=== PATIENT | male | born 1950 | race African-American/Black ===

== ENCOUNTER 2017-03-04 11:32 | Day surgery (SDC) | payer MEDICARE, MEDICAID ==
[~2017-03-04] VITALS: Ht 185.4 cm; Wt 102.5 kg
[~2017-03-04 11:32] MED LIST: ASPIRIN LOW DOS81 M2 PO; CIPRO500 MG OR; COUMADIN5 MG PO; COUMADIN7.5 MG PO; CRESTOR20 MG PO; FLAGYL500 MG OR; FLEXERIL5 MG PO; FUROSEMIDE20 MG PO; HYDROCHLOROT12.5 MG OR; HYDROCHLOROT12.5 MG PO; HYDROCHLOROTH12.5 MG OR; LISINOP/HCTZ1 TA1 PO; LISINOPRIL10 MG OR; LISINOPRIL20 MG PO; LORTAB 5 OR; MILK OF MAG30 ML/UDC PO; NORVASC PO; PERCOCET 5/325M1 TAB PO; PRAVASTATIN40 MG PO; RANITIDINE150 M1 PO; SIMVASTATIN20 MG OR; TRAMADOL HCL50 MG PO; ULTRAM50 MG OR; WARFARIN5 MG PO
[2017-03-04 13:56] VITALS: BP 120/72
== END 2017-03-04 14:10 | disposition home or self-care (01) ==
LOC: ENDO 11:32 → ORM 18:15
PROVIDERS: ATTEND Internal Medicine Gastroenterology
PROC: 0DJD8ZZ Inspection of Lower Intestinal Tract, Via Natural or Artificial Opening Endoscopic (ICD-10-PCS; principal; 2017-03-04)
DX: Z12.11 Encounter for screening for malignant neoplasm of colon (principal); K64.4 Residual hemorrhoidal skin tags; K64.8 Other hemorrhoids; K21.9 Gastro-esophageal reflux disease without esophagitis; E78.00 Pure hypercholesterolemia, unspecified; I10 Essential (primary) hypertension; Z86.010 Personal history of colon polyps; Z86.718 Personal history of other venous thrombosis and embolism

== ENCOUNTER 2018-03-13 10:23 | Emergency (ER) | payer MEDICARE, MEDICAID ==
[~2018-03-13] VITALS: Ht 185.4 cm; Wt 102.3 kg
[2018-03-13] MEDS ORDERED: ATORVASTATIN CA10 MG PO (10:45)
[2018-03-13 12:09] VITALS: BP 165/70
[2018-03-13] MEDS ORDERED: IBUPROFEN600 MG PO (12:12)
[2018-03-13] MEDS ORDERED: MEDDOSEPAK PO (12:12)
== END 2018-03-13 12:16 | disposition home or self-care (01) ==
LOC: ED 10:23
DX: M54.32 Sciatica, left side (principal); I10 Essential (primary) hypertension; Z86.718 Personal history of other venous thrombosis and embolism; M79.605 Pain in left leg; R60.0 Localized edema

== ENCOUNTER 2018-04-28 12:02 | Day surgery (SDC) | payer MEDICARE, MEDICAID ==
[~2018-04-28] VITALS: Ht 185.4 cm; Wt 103.9 kg
[~2018-04-28 12:02] MED LIST changes: +ADULT ASPIRIN E81 MG PO; +ATORVASTATIN CA10 MG PO; +IBUPROFEN600 MG PO; +MEDDOSEPAK PO; +METO50TA52 PO
[2018-04-28 16:20] VITALS: BP 125/81
== END 2018-04-28 16:40 | disposition home or self-care (01) ==
LOC: ENDO 12:02
PROVIDERS: ATTEND Internal Medicine Gastroenterology
PROC: 0DBN8ZX Excision of Sigmoid Colon, Via Natural or Artificial Opening Endoscopic, Diagnostic (ICD-10-PCS; principal; 2018-04-28)
DX: Z12.11 Encounter for screening for malignant neoplasm of colon (principal); K63.5 Polyp of colon; K64.4 Residual hemorrhoidal skin tags; K64.8 Other hemorrhoids; K21.9 Gastro-esophageal reflux disease without esophagitis; I10 Essential (primary) hypertension; E78.00 Pure hypercholesterolemia, unspecified; Z86.718 Personal history of other venous thrombosis and embolism; Z95.828 Presence of other vascular implants and grafts; Z86.010 Personal history of colon polyps

== ENCOUNTER 2018-06-04 12:39 | Emergency (ER) | payer MEDICARE, MEDICAID ==
[~2018-06-04] VITALS: Ht 185.4 cm; Wt 90.0 kg
[2018-06-04 13:33] LABS: HEMATOCRIT 25.8 % (39.0-50.0); HEMOGLOBIN 8.2 g/dl (14.0-18.0); IMMATURE GRANULOCYTES 0.5 % (0.0-5.0); MEAN CELL VOLUME 77.7 fL CALC (80.0-100.0); MEAN CORPUSCULAR HGB 24.7 pG CALC (26.0-32.0); MEAN CORPUSCULAR HGB CONC 31.8 g/L CALC (32.0-36.0); NEUT# 1.66 thou/uL (1.82-7.42); RED BLOOD COUNT 3.32 mill/uL (4.70-6.10); RED CELL DISTRI WIDTH 20.8 % (11.5-15.5)
[2018-06-04] MEDS ORDERED: ADLT ASA LOW81 MG PO (13:49)
[2018-06-04 14:31] LABS: ALKALINE PHOSPHATASE 82 u/l (38-126); ANION GAP 17 (6-22 (CALC)); BILIRUBIN, TOTAL 0.3 mg/dL (0.0-1.4); BUN 20 mg/dL (8-23); BUN/CREATININE RATIO 18 (12-20 (CALC)); CARBON DIOXIDE 26 mmol/l (22-30); CHLORIDE 107 mmol/l (95-108); CREATININE 1.1 mg/dL (0.7-1.3); GFR > 60 ML/MIN (>=60 (CALC)); GFR FOR AFR.AMER. > 60 ML/MIN (>=60 (CALC)); MAGNESIUM 2.1 mg/dL (1.6-2.3); POTASSIUM 4.5 mmol/l (3.5-5.1); SGOT/AST 54 u/l (19-48); SODIUM 145 mmol/l (137-146); TOTAL PROTEIN 7.5 g/dL (6.3-8.2)
[2018-06-04 14:57] VITALS: BP 133/80
[2018-06-04] MEDS ORDERED: TRAMADOL HYDROC50 MG PO (15:00)
== END 2018-06-04 15:13 | disposition home or self-care (01) ==
LOC: ED 12:39
DX: M79.605 Pain in left leg (principal); M79.604 Pain in right leg; Z87.898 Personal history of other specified conditions; Z86.718 Personal history of other venous thrombosis and embolism

== ENCOUNTER 2018-06-05 08:56 | Emergency (ER) | payer MEDICARE, MEDICAID ==
[~2018-06-05] VITALS: Ht 185.4 cm; Wt 104.5 kg
[~2018-06-05 08:56] MED LIST changes: +ADLT ASA LOW81 MG PO; +TRAMADOL HYDROC50 MG PO
[2018-06-05 11:12] VITALS: BP 137/81
== END 2018-06-05 11:16 | disposition home or self-care (01) ==
LOC: ED 08:56
DX: S39.012A Strain of muscle, fascia and tendon of lower back, initial encounter (principal); I10 Essential (primary) hypertension; M19.90 Unspecified osteoarthritis, unspecified site; X58.XXXA Exposure to other specified factors, initial encounter; Z86.718 Personal history of other venous thrombosis and embolism

== ENCOUNTER 2018-06-07 21:02 | Emergency (ER) | payer MEDICARE, MEDICAID ==
[~2018-06-07] VITALS: Ht 185.4 cm; Wt 104.1 kg
[2018-06-07 21:47] LABS: HEMATOCRIT 25.9 % (39.0-50.0); HEMOGLOBIN 8.1 g/dl (14.0-18.0); IMMATURE GRANULOCYTES 0.7 % (0.0-5.0); MEAN CELL VOLUME 78.2 fL CALC (80.0-100.0); MEAN CORPUSCULAR HGB 24.5 pG CALC (26.0-32.0); MEAN CORPUSCULAR HGB CONC 31.3 g/L CALC (32.0-36.0); NEUT# 3.06 thou/uL (1.82-7.42); RED BLOOD COUNT 3.31 mill/uL (4.70-6.10); RED CELL DISTRI WIDTH 21.7 % (11.5-15.5)
[2018-06-07 22:05] LABS: ALBUMIN 4.3 g/dL (3.2-5.0); BILIRUBIN, TOTAL 0.3 mg/dL (0.0-1.4); CREATININE 1.9 mg/dL (0.7-1.3); POTASSIUM 4.9 mmol/l (3.5-5.1); TOTAL PROTEIN 7.7 g/dL (6.3-8.2)
[2018-06-07] MEDS ORDERED: FLEXERIL PO (23:45)
[2018-06-07] MEDS ORDERED: LORTAB 1010 MG PO (23:45)
[2018-06-08 00:10] VITALS: BP 114/66
== END 2018-06-08 00:40 | disposition home or self-care (01) ==
LOC: ED 21:02
PROVIDERS: Emergency Medicine
DX: S33.5XXA Sprain of ligaments of lumbar spine, initial encounter (principal); I10 Essential (primary) hypertension; M19.90 Unspecified osteoarthritis, unspecified site; Z86.718 Personal history of other venous thrombosis and embolism; X58.XXXA Exposure to other specified factors, initial encounter

== ENCOUNTER 2018-06-18 11:40 | Emergency (ER) | payer MEDICARE ==
[~2018-06-18] VITALS: Ht 185.4 cm; Wt 105.0 kg
[~2018-06-18 11:40] MED LIST changes: +FLEXERIL PO; +LORTAB 1010 MG PO
[2018-06-18 12:25] LABS: HEMATOCRIT 21.8 % (39.0-50.0); IMMATURE GRANULOCYTES 0.3 % (0.0-5.0); MEAN CELL VOLUME 77.6 fL CALC (80.0-100.0); MEAN CORPUSCULAR HGB 24.2 pG CALC (26.0-32.0); MEAN CORPUSCULAR HGB CONC 31.2 g/L CALC (32.0-36.0); NEUT# 3.43 thou/uL (1.82-7.42); RED BLOOD COUNT 2.81 mill/uL (4.70-6.10); RED CELL DISTRI WIDTH 21.4 % (11.5-15.5)
[2018-06-18 12:28] LABS: HEMOGLOBIN 6.8 g/dl (14.0-18.0)
[2018-06-18 12:32] LABS: ANION GAP 18 (6-22 (CALC)); BUN 19 mg/dL (8-23); BUN/CREATININE RATIO 16 (12-20 (CALC)); CARBON DIOXIDE 22 mmol/l (22-30); CHLORIDE 103 mmol/l (95-108); CREATININE 1.1 mg/dL (0.7-1.3); GFR > 60 ML/MIN (>=60 (CALC)); GFR FOR AFR.AMER. > 60 ML/MIN (>=60 (CALC)); POTASSIUM 4.4 mmol/l (3.5-5.1); SODIUM 138 mmol/l (137-146)
[2018-06-18 14:09] VITALS: BP 128/64
[2018-06-18 14:33] VITALS: BP 118/62
[2018-06-18 15:15] VITALS: BP 118/62
== END 2018-06-18 15:16 | disposition short-term general hospital (02) ==
LOC: ED 11:40
PROVIDERS: Family Medicine
PROC: 30233N1 Transfusion of Nonautologous Red Blood Cells into Peripheral Vein, Percutaneous Approach (ICD-10-PCS; principal; 2018-06-18)
DX: I82.402 Acute embolism and thrombosis of unspecified deep veins of left lower extremity (principal); D64.9 Anemia, unspecified; I10 Essential (primary) hypertension; M19.90 Unspecified osteoarthritis, unspecified site; Z86.718 Personal history of other venous thrombosis and embolism; Z95.828 Presence of other vascular implants and grafts; R06.02 Shortness of breath
CPT/HCPCS: P9016

== ENCOUNTER 2018-09-04 07:02 | Inpatient (IN) | payer MEDICARE ==
[~2018-09-04] VITALS: Ht 188 cm; Wt 93.0 kg
--- NOTE | 2018-09-04 07:02 | NUR ---
PT TO ROOM 10 VIA WC ABLE TO STAND AND TRANSFER SELF TO STRETCHER WITHOUT ASSIST.
--- NOTE | 2018-09-04 07:25 | NUR ---
PT RELATES PAIN IS 6/10 BURNING TO EPIGASTRIC REGION. PO ASA 324MG AND NITRO PASTE 1GM TO LT UPPER ARM. NO DYSPNEA OR SOB. INITIATED IV
[2018-09-04 07:33] LABS: HEMATOCRIT 30.9 % (39.0-50.0); HEMOGLOBIN 10.1 g/dl (14.0-18.0); IMMATURE GRANULOCYTES 0.2 % (0.0-5.0); MEAN CELL VOLUME 78.6 fL CALC (80.0-100.0); MEAN CORPUSCULAR HGB 25.7 pG CALC (26.0-32.0); MEAN CORPUSCULAR HGB CONC 32.7 g/L CALC (32.0-36.0); NEUT# 2.67 thou/uL (1.82-7.42); RED BLOOD COUNT 3.93 mill/uL (4.70-6.10); RED CELL DISTRI WIDTH 19.5 % (11.5-15.5)
[2018-09-04 07:50] LABS: ALBUMIN 4.8 g/dL (3.2-5.0); ALKALINE PHOSPHATASE 135 u/l (38-126); ANION GAP 21 (6-22 (CALC)); BILIRUBIN, TOTAL 0.6 mg/dL (0.0-1.4); BUN 37 mg/dL (8-23); BUN/CREATININE RATIO 28 (12-20 (CALC)); CARBON DIOXIDE 24 mmol/l (22-30); CHLORIDE 103 mmol/l (95-108); CREATININE 1.3 mg/dL (0.7-1.3); GFR 55 ML/MIN (>=60 (CALC)); GFR FOR AFR.AMER. > 60 ML/MIN (>=60 (CALC)); LIPASE 159 u/l (23-300); POTASSIUM 4.7 mmol/l (3.5-5.1); SGOT/AST 81 u/l (19-48); SODIUM 143 mmol/l (137-146)
--- NOTE | 2018-09-04 08:00 | NUR ---
URINAL EMPTIED OF 300CC CLEAR LIGHT YELLOW URINE
--- NOTE | 2018-09-04 08:36 | NUR ---
PT STATES CP IS 0/10. INITATED IV FLUIDS AND BS RECHECK READS MD JESSICA AWARE, NEW ORDERS RECEIVED.
--- NOTE | 2018-09-04 09:04 | NUR ---
URINAL EMPTIED OF 300CC CLEAR LIGHT YELLOW URINE. ADMINISTERED NOVOLIN R 5U IV ORDERED FOR BS
[2018-09-04] MEDS ORDERED: ELIQUIS5 MG PO (09:24)
[2018-09-04 10:00] LABS: URINE BILIRUBIN - DIPSTICK NEGATIVE (NEGATIVE); URINE BLOOD DIPSTICK TRACE-INTACT (NEGATIVE); URINE COLOR YELLOW; URINE GLUCOSE - DIPSTICK >=1000 mg/dL (NEGATIVE); URINE KETONE TRACE mg/dL (NEGATIVE); URINE LEUK ESTERASE NEGATIVE (Negative); URINE NITRITE - DIPSTICK NEGATIVE (Negative); URINE PH 5.5 (4.5-8.0); URINE PROTEIN - DIPSTICK NEGATIVE (NEG-TRACE); URINE SPECIFIC GRAVITY <=1.005; URINE UROBILINOGEN - DIPSTICK 0.2 E.U./dL (0.2)
[2018-09-04 10:03] LABS: URINE CLARITY SL CLOUDY
--- NOTE | 2018-09-04 10:03 | NUR ---
PT RECHECK BS READS HIGH. AWARE AND NEW ORDERS RECEIVED
--- NOTE | 2018-09-04 10:14 | NUR ---
INITIATED IVF BOLUS AND NOVOLIN R 5U IV ORDERED. PT C/O EXCESSIVE THIRST. URINAL EMPTIED OF 300CC CLEAR STRAW COLORED URINE.
--- NOTE | 2018-09-04 11:21 | NUR ---
RECHECK OF BS READS CRITICAL HIGH. EDP INFORMED, REQUESTED TO NOTIFY ADMITING PHYSICIAN.PT ALERT AND ORIENTED IN NO AUTE DISTRESS.
--- NOTE | 2018-09-04 11:24 | NUR ---
DR KURTZ REQUESTED REPEAT CBC AND SEND TO ICU AND "WE WILL TAKE OF IT OVER THERE".
--- NOTE | 2018-09-04 11:54 | NUR ---
LABA T BEDSIDE FOR CMP DRAW.
--- NOTE | 2018-09-04 12:00 | NUR ---
CALLED REPORT TO LAURO ALVAREZ RN ICU
--- NOTE | 2018-09-04 12:10 | NUR ---
PT TRANSPORTED TO ICU VIA STRETCHER ON CONTINUOUS PEER EDUCATOR. PT ALERT AND ORIENTED.
[2018-09-04 12:15] VITALS: BP 157/83
--- NOTE | 2018-09-04 12:15 | NUR ---
PT ARRIVED TO ICU 7 FROM ER BY STRETCHER. PT AMBULATED WITH STEADY GAIT FROM STRETCHER TO BED. C/O OCCASIONAL DIZZINESS WHEN HE FIRST STANDS UP BUT DENIES S/S AT THIS TIME. V/S TAKEN. ASSESSMENT COMPLETED. PT EDUCATED ON CALLBELL & FALL RISK INSTRUCTIONS. PT GIVEN TRAY FROM [place] FOR LUNCH.
[2018-09-04 12:26] LABS: ALBUMIN 4.2 g/dL (3.2-5.0); ALKALINE PHOSPHATASE 123 u/l (38-126); ANION GAP 16 (6-22 (CALC)); BILIRUBIN, TOTAL 0.3 mg/dL (0.0-1.4); BUN 31 mg/dL (8-23); BUN/CREATININE RATIO 28 (12-20 (CALC)); CARBON DIOXIDE 25 mmol/l (22-30); CHLORIDE 110 mmol/l (95-108); CREATININE 1.1 mg/dL (0.7-1.3); GFR > 60 ML/MIN (>=60 (CALC)); GFR FOR AFR.AMER. > 60 ML/MIN (>=60 (CALC)); SGOT/AST 70 u/l (19-48); SODIUM 147 mmol/l (137-146); TOTAL PROTEIN 7.8 g/dL (6.3-8.2)
--- NOTE | 2018-09-04 12:30 | NUR ---
PT C/O INCREASED THRIST & URINATION ALONG WITH WEAKNESS SINCE TUESDAY. INITIAL C/O FOR ER WAS CP BUT PT DENIES CP AT THIS TIME. PT DENIES N/V/D. ABD SOFT/NONTENDER, ACTIVE BS. BREATHING EVEN/UNLABORED, CLEAR LUNG SOUNDS. PULSES STRONG x4. NO EDEMA. CARY. EYES PERRLA @4. SKIN WARM/DRY. DENIES WOUNDS. PT HAS UPPER/LOWER DENTURES, NO HEARING AIDS. PT DOES NOT USE A CANE OR WALKER. PT LIVES ALONE AND FEELS SAFE, DRIVES SELF. PT ORIGINALLY FROM [place]. RECENTLY HAD A BLOOD CLOT IN HIS LEG, DENIES HX OF DIABETES NOT FAMILY HX OF DIABETES. PT EDUCATED ON NEW DIET, INCLUDING ALL THE CARBS ON LUNCH TRAY.
--- NOTE | 2018-09-04 13:50 | NUR ---
PT RESTING IN BED. 200CC CLEAR YELLOW URINE DISCARDED FROM URINAL. CALLBELL W/IN REACH.
--- NOTE | 2018-09-04 15:09 | NUR ---
PT RESTING IN BED, WATCHING TV. REQUESTED ANOTHER BOTTLE OF WATER. DENIES PAIN. DENIES N/V/D.
--- NOTE | 2018-09-04 16:07 | NUR ---
DR KURTZ @BEDSIDE WITH PT.
--- NOTE | 2018-09-04 17:07 | NUR ---
EDUCATED PT ON ACCUCHECK PROCESS, WALKED PT THROUGH EACH STEP. READING: JESSICA
--- NOTE | 2018-09-04 17:20 | NUR ---
DR KURTZ ON UNIT, NOTIFIED OF PTS "HI" ACCUCHECK READING. RBVO FROM DR KURTZ TO GIVE 20units NOVOLOG INSTEAD OF 14 AND GIVE JOY CABRERA DIRECTED.
--- NOTE | 2018-09-04 17:32 | NUR ---
PROVIDED EDUCATION ON DIABETES FOR PT, INCLUDING NAMES OF NEW MEDICATIONS AND WETHER THEY ARE SHORT OR LONG ACTING AND WHEN HE NEEDS THEM. PRINTED OUT A COPY OF SLIDING SCALE FOR PT. PT SHOWN HOW TO INJECT MEDICATIONS BUT STATES HE WANTS THE PILL FORM IF HE HAS TO DO THAT TO HIMSELF BC HE DOESNT THINK HE CAN DO IT.
[2018-09-04 19:10] VITALS: BP 141/78
--- NOTE | 2018-09-04 19:15 | NUR ---
BEDSIDE REPORT RECEIVED FROM MURIEL ARELLANO. PT RESTING IN BED SEMI FOWLERS; ALERT AND ORIENTED. DENIES PAIN. RESPOIRATIONS EVEN AND UNLABORED ON ROOM AIR. PLAN OF CARE DISCUSSED. PT ENCOURAGED TO VERBALIZE CONCERNS. STATES UNDERSTANDING AND REQUESTS ICE WATER. SAFETY MEASURES IN PLACE. CALL LIGHT WITHIN REACH.
--- NOTE | 2018-09-04 20:27 | NUR ---
ACCU CHECK 404; DR. KURTZ NOTIFED. ORDERS TO GIVE SCHEDULED NOVOLOG AND LEVEMIR; NOTHING ADDITIONAL AT THIS TIME.
[2018-09-05] VITALS (8 sets, daily range): BP systolic 97–137; BP diastolic 69–82
--- NOTE | 2018-09-05 00:02 | NUR ---
PT ASLEEP AT THIS TIME WITH NO SIGNS OF DISTRESS. RESPIRATIONS EVEN AND UNLABORED ON ROOM AIR. IV FLUIDS INFUSING WITHOUT DIFFICULTY; IV SITE APPEARS HEALTHY. INDEPENDENT IN ROOM. NO SIGNS OF HYPOGLYCEMIA. NO REQUESTS OR CONCERNS AT THIS TIME. SAFETY MEASURES IN PLACE. CALL LIGHT WITHIN REACH.
--- NOTE | 2018-09-05 04:03 | NUR ---
NO ACUTE CHANGES IN CONDITION THROUGHOUT THE NIGHT. VOIDING CLEAR YELLOW URINE IN ADEQUATE AMOUNTS. CALL LIGHT WITHIN REACH.
[2018-09-05 06:19] LABS: HEMATOCRIT 27.3 % (39.0-50.0); HEMOGLOBIN 8.9 g/dl (14.0-18.0); IMMATURE GRANULOCYTES 0.4 % (0.0-5.0); MEAN CELL VOLUME 78.7 fL CALC (80.0-100.0); MEAN CORPUSCULAR HGB 25.6 pG CALC (26.0-32.0); MEAN CORPUSCULAR HGB CONC 32.6 g/L CALC (32.0-36.0); NEUT# 2.92 thou/uL (1.82-7.42); RED BLOOD COUNT 3.47 mill/uL (4.70-6.10)
[2018-09-05 06:36] LABS: ALKALINE PHOSPHATASE 106 u/l (38-126); AMYLASE 47 u/l (30-110); ANION GAP 13 (6-22 (CALC)); BILIRUBIN, TOTAL 0.4 mg/dL (0.0-1.4); BUN 22 mg/dL (8-23); BUN/CREATININE RATIO 24 (12-20 (CALC)); CARBON DIOXIDE 25 mmol/l (22-30); CHLORIDE 110 mmol/l (95-108); CREATININE 0.9 mg/dL (0.7-1.3); GFR > 60 ML/MIN (>=60 (CALC)); GFR FOR AFR.AMER. > 60 ML/MIN (>=60 (CALC)); LIPASE 85 u/l (23-300); MAGNESIUM 2.3 mg/dL (1.6-2.3); SGOT/AST 65 u/l (19-48); SODIUM 144 mmol/l (137-146); TOTAL PROTEIN 7.5 g/dL (6.3-8.2)
[2018-09-05 06:38] LABS: POTASSIUM 3.9 mmol/l (3.5-5.1)
--- NOTE | 2018-09-05 06:55 | NUR ---
RECVD REPORT FROM MURIEL RODRIGUEZ AT START OF SHIFT.
--- NOTE | 2018-09-05 07:39 | NUR ---
PT SITTING UP IN BED, EATING BREAKFAST. CURTAINS OPENED. WILL CONTINUE TO ECUCATE PT ON DIABETES.
--- NOTE | 2018-09-05 09:15 | NUR ---
PT TO [facility] FOR A SHOWER.
--- NOTE | 2018-09-05 09:45 | NUR ---
PT RETURNED FROM SHOWER. LINENS CHANGED. NO NEW NEEDS/CONCERNS AT THIS TIME. CALLBELL W/IN REACH. DIETARY WILL COME BACK LATER WITH DIABETES INFORMATION.
--- NOTE | 2018-09-05 10:09 | NUR ---
DR KURTZ @BEDSIDE WITH PT, DISCUSSING ALTERNATIVE DM MEDICATIONS D/T PT STATING HE WONT BE ABLE TO GIVE HIMSELF SHOTS WHEN HE GOES HOME.
--- NOTE | 2018-09-05 10:20 | NUR ---
DISCUSSED LABS WITH DR KURTZ, HE STATES PT WILL FOLLOW UP OUTPT.
--- NOTE | 2018-09-05 10:56 | NUR ---
CALLED PHARMACY TO DISCUSS NEW DM MEDICATION START DATE/TIMES. THEY WILL CALL DR KURTZ TO CLARIFY ORDERS.
--- NOTE | 2018-09-05 11:46 | NUR ---
VISITOR @BEDSIDE. PT SITTING UP IN BED, EATING LUNCH. MORE EDUCATION PROVIDED RE: DM AND EDUCATION PRINTED OUT FROM DC INSTRUCTIONS FOR PT TO READ. PT DENIES S/S OF HYPER/HYPOGLYCEMIA.
--- NOTE | 2018-09-05 12:11 | NUR ---
LAB @BEDSIDE FOR BLOOD DRAW.
--- NOTE | 2018-09-05 13:11 | NUR ---
DIETARY @BEDSIDE WITH PT/VISITOR FOR DM DIET EDUCATION.
--- NOTE | 2018-09-05 14:00 | NUR ---
PHARMACY AT BEDSIDE
--- NOTE | 2018-09-05 14:16 | NUR ---
VISITOR LEFT SO PT CAN SLEEP. CALLBELL W/IN REACH.
--- NOTE | 2018-09-05 14:34 | NUR ---
Spoke with patient about his concerns for his recent diagnosis of diabetes. Counseled patient on lifestyle modifications, specifically exercising and dieting. The patient admitted he does drink a lot of juice in which we explained the high amounts of sugar that juice has. Encouraged patient to drink more water and go for walks more.
--- NOTE | 2018-09-05 15:50 | NUR ---
PT RESTING IN BED. NO S/S OF DISTRESS AT THIS TIME.
--- NOTE | 2018-09-05 18:17 | NUR ---
PT MEDICATED PRIOR TO TUBE FEEDING. MURIEL WEEMS, ASSISTING WITH TUBE FEEDING 1 CAN OF GYLERCNIA BY PEG TUBE.
--- NOTE | 2018-09-05 19:00 | NUR ---
BEDSIDE REPORT RECEIVED FROM MURIEL ARELLANO. PT RESTING IN BED SEMI FOWLERS; ALERT AND ORIENTED. C/O OF SEVERE PAIN TO HIS RIGHT AXILLA AND UPPER ARM; ON ASSESSMENT PT HAS LARGE ABCESS TO THAT AREA WITH WHITE FOCAL POINT AND FIRMNESS THROUGHOUT AXILLA. WARM PACK APPLIED. RESPIRATIONS EVEN AND UNLABORED ON ROOM AIR. PLAN OF CARE REVIEWED. PT ENCOURAGED TO VERBALIZE CONCERNS. STATES UNDERSTANDING. SAFETY MEASURES IN PLACE. CALL LIGHT WITHIN REACH.
--- NOTE | 2018-09-05 19:58 | NUR ---
PT SPIKED A TEMPERATURE OF 102.0. DR. KURTZ NOTIFIED OF TEMP AND ABSCESS. NEW ORDERS FOR BLOOD CX X 2, VANCOMYCIN 1G, TYLENOL PRN FOR FEVERS, AND POSSIBLE I&D OF RIGHT AXILLA TOMORROW. LAB AT BEDSIDE AT THIS TIME.
--- NOTE | 2018-09-05 21:10 | NUR ---
VANCOMYCIN INFUSING AT THIS TIME. TEMPERATURE DOWN TO 101.0 AFTER TYLENOL; WILL CONTINUE TO MONITOR.
[2018-09-06] VITALS (7 sets, daily range): BP systolic 113–135; BP diastolic 63–82
--- NOTE | 2018-09-06 00:25 | NUR ---
PT ASLEEP AT THIS TIME WITH NO SIGNS OF DISTRESS. RESPIRATIONS EVEN AND UNLABORED ON ROOM AIR. IV FLUIDS INFUSING WITHOUT DIFFICULTY; IV SITE APPEARS HEALTHY. INDEPENDENT IN ROOM. TEMPERATURE DOWN TO 99.8. SAFETY MEASURES IN PLACE. CALL LIGHT WITHIN REACH.
--- NOTE | 2018-09-06 04:07 | NUR ---
PT RESTING IN BED WITH EYES CLOSED; AWAKENS TO VERBAL STIMULI. TEMPERATURE 99.8.
[2018-09-06 05:34] LABS: HEMATOCRIT 27.2 % (39.0-50.0); HEMOGLOBIN 8.6 g/dl (14.0-18.0); IMMATURE GRANULOCYTES 0.4 % (0.0-5.0); MEAN CELL VOLUME 78.8 fL CALC (80.0-100.0); MEAN CORPUSCULAR HGB 24.9 pG CALC (26.0-32.0); MEAN CORPUSCULAR HGB CONC 31.6 g/L CALC (32.0-36.0); NEUT# 3.41 thou/uL (1.82-7.42); RED BLOOD COUNT 3.45 mill/uL (4.70-6.10); RED CELL DISTRI WIDTH 19.9 % (11.5-15.5)
[2018-09-06 06:05] LABS: ALBUMIN 3.7 g/dL (3.2-5.0); ALKALINE PHOSPHATASE 97 u/l (38-126); ANION GAP 14 (6-22 (CALC)); BILIRUBIN, TOTAL 0.4 mg/dL (0.0-1.4); BUN 18 mg/dL (8-23); BUN/CREATININE RATIO 17 (12-20 (CALC)); CARBON DIOXIDE 24 mmol/l (22-30); CHLORIDE 107 mmol/l (95-108); CREATININE 1.1 mg/dL (0.7-1.3); GFR > 60 ML/MIN (>=60 (CALC)); GFR FOR AFR.AMER. > 60 ML/MIN (>=60 (CALC)); SGOT/AST 54 u/l (19-48); SODIUM 140 mmol/l (137-146); TOTAL PROTEIN 7.2 g/dL (6.3-8.2)
--- NOTE | 2018-09-06 07:19 | NUR ---
PT. SITTING UP IN BED WITH NO DISTRESS NOTED; RESP EVEN AND UNLABORED; ASSESSMENT COMPLETED; ABCESS NOTED TO RIGHT AUXILLARY; FIRM AND INTACT; PT. C/O SORENESS TO SITE AND HAS A TEMP OF 101; MEDICATED WITH ORDERED TYLENOL; WILL REASSESS; PT. DECLINES WANTING TO REMOVE BLANKET AT THIS TIME; UPDATED ON POC. EDUCATED ON HOW TO CHECK HIS BS AND BS CHECKED AT THIS TIME AND COVERAGE GIVEN AT THIS TIME PER ORDER; INSTRUCTED TO CALL FOR ANY NEEDS; CALL LIGHT IS IN REACH; WILL CONTINUE TO MONITOR.
--- NOTE | 2018-09-06 07:59 | NUR ---
S: BRENNON FRANKLIN is a 68 M who presents with Nonketotic hyperglycemic state. He has a history of NEW DM2,HTN,DVT,HYPERLIPEMIA,GERD,HYPERCALCEMIA,ANEMIA. All medications in patient's chart were reviewed. O: VS: BP 125/75, P 90, RR 18,T 101 W 93kg, HT 74IN, Scr= 1.1,CrCl= 77 ml/min A: Blood culture <is pending/show> which is sensitive to <>. Urine culture <is pending/show> which is sensitive to <>. P: Patient is on VANCO. Vancomycin ordered for pharmacy to dose. Start Vancomycin 1250MG IV Q12H. Vancomycin trough is drawn before the 4th dose on 09/07/17 AT 0730AM. Vancomycin goal trough is between <10-15 mcg/ml>. Pharmacy will follow and or advise on antibiotics use as needed. MARTIR NELSON-PHARMD
--- NOTE | 2018-09-06 08:30 | NUR ---
REASSESSED TEMP AND NOW IS 99.6; WILL CONTINUE TO MONITOR. CALL LIGHT IS IN REACH.
--- NOTE | 2018-09-06 11:00 | NUR ---
DR. KURTZ IN TO SEE PT.
--- NOTE | 2018-09-06 14:31 | NUR ---
pt. c/o right axillary pain 03/31; medicated with ordered tylenol; will reassess; po fluids offered; call light is in reach.
--- NOTE | 2018-09-06 15:40 | NUR ---
PT. STILL C/O PAIN TO RIGHT AXILLARY 12/29; NOTIFIED DR. ASKEW VIA TELEPHONE THAT PT. IS REQUESTING SOMETHING STRONGER THAN TYLENOL; PER MD HE WILL PLACE ORDERS IN CPOE; WILL AWAIT;
--- NOTE | 2018-09-06 18:20 | NUR ---
REASSESSED TEMP AND NOW IS 100.1; WILL CONTINUE TO MONITOR. ABCESS TO RIGHT AXILLARY IS NOTED WITH SLIGHT DRAINAGE CLEANSED WITH NS AND APPLIED ABD PAD; ENCOURAGED TO CALL FOR ANY NEEDS; CALL LIGHT IS IN REACH.
--- NOTE | 2018-09-06 19:15 | NUR ---
PT SITTING UP IN BED WATCHING TV. PT IS ALERT AND ORIENTED X3. SHIFT ASSESSMENT COMPLETED AT THIS TIME. PLAN OF CARE REVIEWED AT THIS TIME. CALL LIGHT IN REACH. WILL CONTINUE TO MONITOR.
--- NOTE | 2018-09-06 21:22 | NUR ---
PT APPEARS TO BE SLEEPING, DID NOT AWAKE TO MY ENTERING ROOM. IV FLUIDS ARE RUNNING ORDERS PROVIDE, PT HAS WASHCLOTH TO HIS HEAD, BUT NO S/O DISTRESS ARE NOTED. CALL LIGHT AT SIDE.
--- NOTE | 2018-09-07 00:05 | NUR ---
PT IS AWAKE, AIDE WAS JUST IN TO SEE PT. IV FLUIDS ARE RUNNING ORDERS PROVIDE/SITE APPEARS HEALTHY. NO S/O DISTRESS AND PT DENIES ANY NEEDS AT THIS TIME. CALL LIGHT AT SIDE AND PT ENCOURAGED TO CALL NEEDS ARISE.
[2018-09-07 00:16] VITALS: BP 112/74
--- NOTE | 2018-09-07 01:24 | NUR ---
PT APPEARS TO BE SLEEPING AT THIS TIME. NO S/O DISTRESS NOTED.
[2018-09-07 04:10] VITALS: BP 115/70
[2018-09-07 06:02] LABS: HEMATOCRIT 24.9 % (39.0-50.0); HEMOGLOBIN 8.1 g/dl (14.0-18.0); IMMATURE GRANULOCYTES 0.6 % (0.0-5.0); MEAN CELL VOLUME 78.5 fL CALC (80.0-100.0); MEAN CORPUSCULAR HGB 25.6 pG CALC (26.0-32.0); MEAN CORPUSCULAR HGB CONC 32.5 g/L CALC (32.0-36.0); NEUT# 2.71 thou/uL (1.82-7.42); RED BLOOD COUNT 3.17 mill/uL (4.70-6.10)
[2018-09-07 06:27] LABS: PROTHROMBIN TIME 10.4 SECONDS (9.0-12.5)
[2018-09-07 06:29] LABS: ALBUMIN 3.2 g/dL (3.2-5.0); ALKALINE PHOSPHATASE 83 u/l (38-126); ANION GAP 12 (6-22 (CALC)); BILIRUBIN, TOTAL 0.3 mg/dL (0.0-1.4); BUN 20 mg/dL (8-23); BUN/CREATININE RATIO 21 (12-20 (CALC)); CARBON DIOXIDE 24 mmol/l (22-30); CHLORIDE 105 mmol/l (95-108); CREATININE 0.9 mg/dL (0.7-1.3); GFR > 60 ML/MIN (>=60 (CALC)); GFR FOR AFR.AMER. > 60 ML/MIN (>=60 (CALC)); MAGNESIUM 2.1 mg/dL (1.6-2.3); SGOT/AST 50 u/l (19-48); SODIUM 136 mmol/l (137-146); TOTAL PROTEIN 6.4 g/dL (6.3-8.2)
[2018-09-07 08:00] VITALS: BP 120/75
--- NOTE | 2018-09-07 08:00 | NUR ---
PT AWAKE, ALERT, ORIENTED X 3. PT NPO IN ANTICIPATION OF DR ROGER PERFORMING I&D TO RIGHT AXILLA. PT COVERED WITH 4 UNITS REGULAR INSULIN FOR BS 238 THIS AM.
--- NOTE | 2018-09-07 10:11 | NUR ---
S: BRENNON FRANKLIN is a 68 M who presents with nonketotic hyperglycemic state. He has a history of new DM2, hyperlipidemia, GERD, hypercalcemia, and anemia. All medications in patient's chart were reviewed. O: VS: BP 120/75 mmHg, P 72 bpm, RR 16,T(F) 97.3 W 93 kg, HT 187.96 cm, Scr= 1, CrCl= 91.71 ml/min Vancomycin trough drawn on 09/07/18 is 11 A: Preliminary blood culture shows no growth after 24 hours x 4 bottles. Pt is currently within goal trough range with current vancomycin dose. P: Patient is on vancomycin. Vancomycin ordered for pharmacy to dose. Continue Vancomycin 1,250 mg IV Q12H. Vancomycin trough is drawn on 09/08/18 at 0730. Vancomycin goal trough is between <10-15 mcg/ml>. Pharmacy will follow and or advise on antibiotics use as needed.
--- NOTE | 2018-09-07 10:25 | NUR ---
S: BRENNON FRANKLIN is a 68 M who presents with nonketotic diabetic state. He has a history of new DM2, hyperlipidemia, GERD,hypercalcemia, and anemia. All medications in patient's chart were reviewed. O: VS: BP 120/75 mmHg, P 72 bpm, RR 16,T(F) 97.3 W 93 kg, HT 74 in, Scr= 1,CrCl= 91.7 ml/min Vancomycin trough drawn on 09/07/18 at 0730 was 11 mcg/mL. A: Preliminary blood culture shows no growth after 24 hours. Current vancomycin trough is within goal range of 10-15 mcg/mL. P: Patient is on vancomycin. Vancomycin ordered for pharmacy to dose. Continue Vancomycin 1,250 mg IV Q12H. Vancomycin trough is drawn on 09/09/18 at 0730. Vancomycin goal trough is between 10-15 mcg/ml. Pharmacy will follow and or advise on antibiotics use as needed.
[2018-09-07 12:00] VITALS: BP 119/73
--- NOTE | 2018-09-07 12:00 | NUR ---
PT HAD I&D OF RIGHT AXILLA BY DR ROGER, TOLERATED WITH MODERATE TO SEVERE PAIN. WOUND WAS COVERED, NO PACKING PLACED. PT ABLE TO EAT AGAIN, PLEASED FOR THAT.
[2018-09-07 16:00] VITALS: BP 149/72
--- NOTE | 2018-09-07 16:00 | NUR ---
PT PROVIDED MOTRIN FOR ELEVATED TEMP OF 100.6. HEAVY BLANKET REMOVED, ALSO. DAUGHTER REMAINS AT BEDSIDE. WOUND WITH MINIMAL DRAINAGE NOTED.
--- NOTE | 2018-09-07 18:02 | NUR ---
PT NOW PROVIDED TYLENOL 650MG FOR FEVER CONTROL AFTER TEMP WENT UP TO 101.4 AFTER MOTRIN WAS GIVEN. PT STATES PAIN REMAINS 3-4 RANGE.
[2018-09-07 20:00] VITALS: BP 103/61
--- NOTE | 2018-09-07 20:30 | NUR ---
awake. no acute distress. dsg to rt axillary area has small amt blood on it. teletypesetter monitor shows sinus rhythm pvcs. #20 lac saline lock. po fluids taken well. voids per urinal. fall precautions cont.
[2018-09-08] VITALS (12 sets, daily range): BP systolic 111–167; BP diastolic 65–87
--- NOTE | 2018-09-08 00:01 | NUR ---
eyes closed. no distress. medicaid billing specialist shows sinus rhythm pvcs.
--- NOTE | 2018-09-08 04:00 | NUR ---
return clerk shows sinus rhythm pvcs.
--- NOTE | 2018-09-08 05:00 | NUR ---
lab here. blood drawn.
[2018-09-08 05:53] LABS: HEMATOCRIT 23.9 % (39.0-50.0); HEMOGLOBIN 7.7 g/dl (14.0-18.0); IMMATURE GRANULOCYTES 0.5 % (0.0-5.0); MEAN CELL VOLUME 78.4 fL CALC (80.0-100.0); MEAN CORPUSCULAR HGB 25.2 pG CALC (26.0-32.0); MEAN CORPUSCULAR HGB CONC 32.2 g/L CALC (32.0-36.0); PLATELET COUNT 102 thou/uL (130-400); RED BLOOD COUNT 3.05 mill/uL (4.70-6.10); RED CELL DISTRI WIDTH 19.9 % (11.5-15.5)
[2018-09-08 06:01] LABS: ALBUMIN 3.3 g/dL (3.2-5.0); ALKALINE PHOSPHATASE 78 u/l (38-126); ANION GAP 12 (6-22 (CALC)); BILIRUBIN, TOTAL 0.4 mg/dL (0.0-1.4); BUN 23 mg/dL (8-23); BUN/CREATININE RATIO 25 (12-20 (CALC)); CARBON DIOXIDE 24 mmol/l (22-30); CHLORIDE 104 mmol/l (95-108); CREATININE 0.9 mg/dL (0.7-1.3); GFR > 60 ML/MIN (>=60 (CALC)); GFR FOR AFR.AMER. > 60 ML/MIN (>=60 (CALC)); MAGNESIUM 2.2 mg/dL (1.6-2.3); SGOT/AST 56 u/l (19-48); SODIUM 136 mmol/l (137-146); TOTAL PROTEIN 6.4 g/dL (6.3-8.2)
[2018-09-08 06:53] LABS: MANUAL DIFFERENTIAL YES
[2018-09-08 06:54] LABS: ANISOCYTOSIS MODERATE; BAND 3 % (0-8); HYPOCHROMIA MODERATE; OVALOCYTES MODERATE; POIKILOCYTOSIS MARKED; TEAR DROP CELLS FEW
[2018-09-08 06:55] LABS: ACANTHOCYTES FEW
[2018-09-08 06:57] LABS: OTHER CELL TYPE BITE CELLS
--- NOTE | 2018-09-08 16:20 | NUR ---
PT TAKEN TO ROOM 261 PER MED/SURG OVERFLOW TO ICU. PT LEAVES WITH FIRST UNIT OF BLOOD TRANSFUSING, NO EVIDENCE OF DISTRESS.
--- NOTE | 2018-09-08 16:22 | NUR ---
PT ARRIVED TO MS2 VIA BED ACCOMPANIED BY DAUGHTER. PT ALERT AND ORIENTED X3. ORIENTED TO ROOM AND CALL COLLADO. BLOOD TRANFUSING, CALL LIGHT IN REACH,CONTINUE TO MONITOR.
--- NOTE | 2018-09-08 17:06 | NUR ---
FIRST UNIT OF PRBCS INFUSION COMPLETED. VSS, VISITOR AT BEDSIDE. CALL LIGHT IN REACH,CONTINUE TO MONITOR.
--- NOTE | 2018-09-08 17:49 | NUR ---
SECOND UNIT OF BLOOD TRANSFUSION STARTED. EXPLAIN TO PT SIGNS OF REACTIONS. PT VERBALIZED UNDERSTANDING. FAMILY IN ROOM. CALL LIGHT IN REACH.
--- NOTE | 2018-09-08 17:50 | NUR ---
2ND BAG OF PRBC'S HUNG, VERIFIED WITH RN. PT VOICES NO NEEDS OR COMPLAINTS AT THIS TIME, EATING DINNER. CALL LIGHT IN REACH,CONTINUE TO MONITOR.
--- NOTE | 2018-09-08 19:29 | NUR ---
Report recieved from zoltan Handley. poc discussed. pt voiced understand. blood transfusing. no adverse reaction noted. iv patent. will continue to monitor.
[2018-09-09 03:53] VITALS: BP 134/75
[2018-09-09 06:28] LABS: IMMATURE GRANULOCYTES 0.5 % (0.0-5.0); MEAN CELL VOLUME 78.9 fL CALC (80.0-100.0); MEAN CORPUSCULAR HGB 25.4 pG CALC (26.0-32.0); MEAN CORPUSCULAR HGB CONC 32.1 g/L CALC (32.0-36.0); NEUT# 2.37 thou/uL (1.82-7.42); RED BLOOD COUNT 3.55 mill/uL (4.70-6.10); RED CELL DISTRI WIDTH 19.2 % (11.5-15.5)
[2018-09-09 06:43] LABS: ALBUMIN 3.2 g/dL (3.2-5.0); ALKALINE PHOSPHATASE 79 u/l (38-126); ANION GAP 12 (6-22 (CALC)); BILIRUBIN, TOTAL 0.3 mg/dL (0.0-1.4); BUN 17 mg/dL (8-23); BUN/CREATININE RATIO 22 (12-20 (CALC)); CARBON DIOXIDE 25 mmol/l (22-30); CHLORIDE 105 mmol/l (95-108); CREATININE 0.8 mg/dL (0.7-1.3); GFR > 60 ML/MIN (>=60 (CALC)); GFR FOR AFR.AMER. > 60 ML/MIN (>=60 (CALC)); MAGNESIUM 2.2 mg/dL (1.6-2.3); POTASSIUM 4.3 mmol/l (3.5-5.1); SGOT/AST 56 u/l (19-48); SODIUM 136 mmol/l (137-146); TOTAL PROTEIN 6.3 g/dL (6.3-8.2)
--- NOTE | 2018-09-09 07:11 | NUR ---
pt leads replaced. oncoming nurse aware of tele issues. requested new tele.
--- NOTE | 2018-09-09 07:35 | NUR ---
PT RESTING IN BED, NO SIGNS OF DISTRESS NOTED, RESP EVEN AND UNLABORED. PT ALERT AND ORIENTED X3, ASSESSMENT COMPLETED, CALL LIGHT IN REACH,CONTINUE TO MONITOR.
[2018-09-09 07:37] VITALS: BP 128/74
[2018-09-09 08:32] VITALS: BP 128/74
[2018-09-09] MEDS ORDERED: VITAMIN D2000 UNI2 PO (12:12)
[2018-09-09] MEDS ORDERED: GLYBURIDE2.5 M1 PO (12:12)
[2018-09-09] MEDS ORDERED: JANUVIA50 MG PO (12:12)
[2018-09-09] MEDS ORDERED: AUGMENTIN875TAB PO (12:13)
--- NOTE | 2018-09-09 15:15 | NUR ---
DRESSING TO R AXILLA REMOVED, CLEANSED WITH NS, PACKED AND 4X4 DRESSING APPLIED. SECURED WITH TEGADERM. PT TOLERATED WELL. INSTRUCTED TO RETURN TOMORROW TO ED FOR WOUND CARE. CALL LIGHT IN REACH,CONTINUE TO MONITOR.
--- NOTE | 2018-09-09 15:29 | NUR ---
DISCUSSED WITH PT DISCHARGE INSTRUCTIONS. COUPON GIVEN FOR AUGMENTIN, AND PRESCRIPTIONS FOR PT TO RETURN TOMORROW TO ER FOR DRESSING CHANGE. PT AND FAMILY MEMEBER IN AGREEMENT. IV SITE REMOVED, CATHETER INTACT. CALL LIGHT IN REACH,CONTINUE TO MONITOR.
--- NOTE | 2018-09-09 15:44 | NUR ---
Discharge instructions given. Patient verbalizes understanding of same. Discharged in stable condition via Wheelchair to Home with family. All belongings sent with pt.
== END 2018-09-09 15:43 | disposition home or self-care (01) | DRG 638 ==
LOC: ED 07:02 → ED-I 09:47 → ED 11:18 → ICU 11:19 → MS2 09-08 15:55
PROVIDERS: Emergency Medicine; ADMIT Internal Medicine Nephrology; ATTEND Internal Medicine Nephrology
PROC: 0X940ZZ Drainage of Right Axilla, Open Approach (ICD-10-PCS; principal; 2018-09-07)
PROC: 30233N1 Transfusion of Nonautologous Red Blood Cells into Peripheral Vein, Percutaneous Approach (ICD-10-PCS; 2018-09-08)
PROC: 30233N1 Transfusion of Nonautologous Red Blood Cells into Peripheral Vein, Percutaneous Approach (ICD-10-PCS; 2018-09-08)
DX: E11.65 Type 2 diabetes mellitus with hyperglycemia (principal); D61.818 Other pancytopenia; L73.2 Hidradenitis suppurativa; E21.0 Primary hyperparathyroidism; E83.52 Hypercalcemia; I10 Essential (primary) hypertension; E78.5 Hyperlipidemia, unspecified; K21.9 Gastro-esophageal reflux disease without esophagitis; M19.90 Unspecified osteoarthritis, unspecified site; B96.4 Proteus (mirabilis) (morganii) as the cause of diseases classified elsewhere; Z87.891 Personal history of nicotine dependence; Z86.718 Personal history of other venous thrombosis and embolism; Z79.01 Long term (current) use of anticoagulants
CPT/HCPCS: J3370; P9016; Q9967

== ENCOUNTER 2020-03-28 10:11 | Emergency (ER) | payer MEDICARE, MEDICAID ==
[~2020-03-28] VITALS: Ht 188 cm; Wt 100.0 kg
[~2020-03-28 10:11] MED LIST changes: +AUGMENTIN875TAB PO; +ELIQUIS5 MG PO; +GLYBURIDE2.5 M1 PO; +JANUVIA50 MG PO; +VITAMIN D2000 UNI2 PO
[2020-03-28] MEDS ORDERED: METFORMIN500 M2 PO (10:31)
[2020-03-28 10:35] LABS: HEMATOCRIT 28.8 % (39.0-50.0); HEMOGLOBIN 9.2 g/dl (14.0-18.0); IMMATURE GRANULOCYTES 1.4 % (0.0-5.0); MEAN CELL VOLUME 82.3 fL CALC (80.0-100.0); MEAN CORPUSCULAR HGB 26.3 pG CALC (26.0-32.0); MEAN CORPUSCULAR HGB CONC 31.9 g/dL CAL (32.0-36.0); NEUT# 1.3 thou/uL (1.82-7.42); RED BLOOD COUNT 3.5 mill/uL (4.70-6.10); RED CELL DISTRI WIDTH 20.2 % (11.5-15.5)
[2020-03-28 10:47] LABS: ALBUMIN 4.2 g/dL (3.2-5.0); ALKALINE PHOSPHATASE 98 u/l (38-126); ANION GAP 13 (6-22 (CALC)); BILIRUBIN, TOTAL 0.4 mg/dL (0.0-1.4); BUN 21 mg/dL (8-23); BUN/CREATININE RATIO 23 (12-20 (CALC)); CARBON DIOXIDE 25 mmol/l (22-30); CHLORIDE 101 mmol/l (95-108); CREATININE 0.9 mg/dL (0.7-1.3); GFR > 60 ML/MIN (>=60 (CALC)); GFR FOR AFR.AMER. > 60 ML/MIN (>=60 (CALC)); POTASSIUM 3.6 mmol/l (3.5-5.1); SGOT/AST 63 u/l (19-48); SODIUM 135 mmol/l (137-146); TOTAL PROTEIN 8.1 g/dL (6.3-8.2)
[2020-03-28 11:06] LABS: ACT PARTIAL THROMBO TIME 23.3 SECONDS (20.0-32.5); INTERNATIONAL NORMALIZED RATIO 1.1 RATIO (0.7-1.3); PROTHROMBIN TIME 10.9 SECONDS (9.0-12.5)
[2020-03-28] MEDS ORDERED: ZITHROMAX250 MG PO (13:16)
[2020-03-28 14:12] VITALS: BP 110/69
== END 2020-03-28 14:13 | disposition home or self-care (01) ==
LOC: ED 10:11
PROVIDERS: Student in an Organized Health Care Education/Training Program
DX: J18.9 Pneumonia, unspecified organism (principal); I10 Essential (primary) hypertension; Z86.718 Personal history of other venous thrombosis and embolism; Z20.828 Contact with and (suspected) exposure to other viral communicable diseases

== ENCOUNTER 2020-05-06 09:43 | Emergency (ER) | payer MEDICARE, MEDICAID ==
[~2020-05-06] VITALS: Ht 188 cm; Wt 110.0 kg
[~2020-05-06 09:43] MED LIST changes: +METFORMIN500 M2 PO; +ZITHROMAX250 MG PO
[2020-05-06] MEDS ORDERED: ULTRAM50 M1 PO (10:16)
[2020-05-06] MEDS ORDERED: FLEXERIL PO (10:16)
[2020-05-06 10:29] VITALS: BP 145/79
== END 2020-05-06 10:35 | disposition home or self-care (01) ==
LOC: ED 09:43
DX: S23.3XXA Sprain of ligaments of thoracic spine, initial encounter (principal); M47.819 Spondylosis without myelopathy or radiculopathy, site unspecified; I10 Essential (primary) hypertension; X58.XXXA Exposure to other specified factors, initial encounter; Z86.718 Personal history of other venous thrombosis and embolism

== ENCOUNTER 2020-06-06 02:56 | Observation (INO) | payer MEDICARE, MEDICAID ==
[~2020-06-06] VITALS: Ht 188 cm; Wt 89.0 kg
[2020-06-06] VITALS (10 sets, daily range): BP systolic 120–142; BP diastolic 63–74
[~2020-06-06 02:56] MED LIST changes: +ULTRAM50 M1 PO
--- NOTE | 2020-06-06 02:56 | NUR ---
PATIENT AMBULATORY WITH ASSIST OF CANE FROM EMS STRETCHER TO ROOM 14. TRIAGE COMPLETED AT BEDSIDE.
[2020-06-06] MEDS ORDERED: ACYCLOVIR400 MG PO (03:08)
[2020-06-06] MEDS ORDERED: TOPROL XL50 MG PO (03:09)
[2020-06-06] MEDS ORDERED: PERCOCET 5/321 COMBO PO (03:10)
[2020-06-06 03:34] LABS: URINE BILIRUBIN - DIPSTICK NEGATIVE (NEGATIVE); URINE BLOOD DIPSTICK TRACE-INTACT (NEGATIVE); URINE COLOR YELLOW; URINE GLUCOSE - DIPSTICK >=1000 mg/dL (NEGATIVE); URINE KETONE TRACE mg/dL (NEGATIVE); URINE LEUK ESTERASE NEGATIVE (NEGATIVE); URINE NITRITE - DIPSTICK NEGATIVE (Negative); URINE PH 5.5 (4.5-8.0); URINE PROTEIN - DIPSTICK NEGATIVE (NEG-TRACE); URINE SPECIFIC GRAVITY 1.015; URINE UROBILINOGEN - DIPSTICK 0.2 E.U./dL (0.2)
[2020-06-06 03:39] LABS: HEMATOCRIT 24.7 % (39.0-50.0); HEMOGLOBIN 7.9 g/dl (14.0-18.0); MEAN CELL VOLUME 84.3 fL CALC (80.0-100.0); RED BLOOD COUNT 2.93 mill/uL (4.70-6.10)
[2020-06-06 03:41] LABS: IMMATURE GRANULOCYTES 5.4 % (0.0-5.0); NEUT# 2.08 thou/uL (1.82-7.42)
[2020-06-06 03:54] LABS: ALBUMIN 3.4 g/dL (3.2-5.0); ANION GAP 11 (6-22 (CALC)); BILIRUBIN, TOTAL 0.5 mg/dL (0.0-1.4); BUN 22 mg/dL (8-23); BUN/CREATININE RATIO 25 (12-20 (CALC)); CARBON DIOXIDE 24 mmol/l (22-30); CHLORIDE 103 mmol/l (95-108); CREATININE 0.9 mg/dL (0.7-1.3); GFR > 60 ML/MIN (>=60 (CALC)); GFR FOR AFR.AMER. > 60 ML/MIN (>=60 (CALC)); POTASSIUM 4.1 mmol/l (3.5-5.1); SGOT/AST 43 u/l (19-48); SODIUM 134 mmol/l (137-146); TOTAL PROTEIN 6.5 g/dL (6.3-8.2)
[2020-06-06 03:55] LABS: ALKALINE PHOSPHATASE 289 u/l (38-126)
--- NOTE | 2020-06-06 04:00 | NUR ---
RESTING QUIETLY AWAITING TEST RESULTS.
--- NOTE | 2020-06-06 05:00 | NUR ---
RESTING COMFORTABLY. AWAITING DISPO.
--- NOTE | 2020-06-06 06:06 | NUR ---
Admission Note Report Given to: MURIEL ESPAÑA Transported by: X Wheelchair Stretcher Transported with: X Nurse Transporter X Patent IV O2 Power Mule Operator Location: ICU X MS2
--- NOTE | 2020-06-06 06:40 | NUR ---
PATIENT ADMITTED FROM ER VIA W/C WITH ER STAFF IN ATTENDANCE. PATIENT ASSISTED TO BED. AWAKE ALERT AND ORIENTEDX3. 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 LAST CHEMO WAS THIS PAST TUESDAY AND LAST RADIATION TREATMENT YESTERDAY. STATES THAT HE HAS HAD POOR APPETITE AND TAKING NUTRITION SUPPLIMENT SIMILAR TO BOOST OR GLUCERA. HX OF DIAB. BS THIS MORNING IS 284. TAKING METFORMIN AT HOME FOR DIAB. IV SITE TO LAC-IVF NS STARTED AT 125CC/HR. IV SITE IS HEALTHY WITH GOOD BLOOD RETURN. PATIENT ORIENTED TO ROOM AND SURROUNDINGS. INSTRUCTED ON USE OF NURSE CALL LIGHT SYSTEM, TV REMOTE AND PHONE. REVIEWED SAFETY PRECAUTIONS WITH PATIENT. CALL LIGHT IN REACH. WILL CONT TO MONITOR.
--- NOTE | 2020-06-06 08:06 | NUR ---
PT IS SITTING IN THE SIDE OF THE BED. ASSESSMENT DONE. PT IS A&O X3. PT DENIES PAIN AT THIS TIME. IVF INFUSING WELL. PT STATED HE HAD CHEMO ON TUESDAY. PT HAS HOME MEDS IN ROOM. [facility]. PT HAS HOME MEDICATION OXYCODONE COUNT MEDICATION IN FRONT OF PT 48 PILLS IN BOTTLE. PT DENIES ANY NEEDS AT THIS TIME. CALL LIGHT IN REACH.
[2020-06-06 10:21] LABS: HEMATOCRIT 22.5 % (39.0-50.0); HEMOGLOBIN 7.2 g/dl (14.0-18.0)
--- NOTE | 2020-06-06 12:48 | NUR ---
PT IS SITTING IN THE SIDE OF THE BED WITH NO S/S OF DISTRESS NOTED. PT DENIES PAIN AT THIS TIME. EXPLAIN TO PT SIGNS OF REACTION TO BLOOD TRANSFUSION. PT VERBALIZED UNDERSTANDING. PT BLOOD UNIT STARTED. IN ROOM WITH PT. CALL LIGHT IN REACH.
--- NOTE | 2020-06-06 15:55 | NUR ---
PT IS RESTING IN BED WATCHING TV WITH NO S/S OF DISTRESS NOTED. SECOND UNIT OF BLOOD STARTED. PT DENIES ANY NEEDS AT THIS TIME. CALL LIGHT IN REACH.
--- NOTE | 2020-06-06 19:53 | NUR ---
PATIENT RESTING IN BED AT THIS TIME-AWAKE ALERT AND ORIENTEDX3. NO COMPLAINTS AT THIS TIME. SALINE LOCK TO LEFT AC INTACT AND APPEARS HEALTHY AT TIME. SAFETY PRECAUTIONS REINFORCED. CALL LIGHT IN REACH. WILL CONT TO MONITOR.
--- NOTE | 2020-06-06 21:00 | NUR ---
PATIENT RESTING IN BED-HS MEDS GIVEN. TEDN-MAIPC-993. PATIENT COVERED PER NOVALOG SS COVERAGE SCALE-3UNITS OF NOVALOG. HS SNACK PROVIDED. PATIENT VOIDED 300CC OF CLEAR YELLOW URINE IN URINAL. IVF NS PATENT AND INFUSING VIA LEFT AC SITE AT 1`25CC/HR. SITRE REMAINS HEALTHY. NO C/O PAIN AT THIS TIME. SAFETY PRECAUTIONS REINFORCED. CALL LIGHT IN REACH. WILL CONT TO MONITOR.
--- NOTE | 2020-06-06 23:28 | NUR ---
PATIENT IS RESTING IN BED AT THIS TIME WITH HOB ELEVATED AND EYES CLOSED. RESPS ARE EVEN AND UNLABORED. IVF NS PATENT AND INFUSING AT 125CC/HR VIA LAC SITE. CALL LIGHT IN REACH. WILL CONT TO MONITOR.
[2020-06-07 04:00] VITALS: BP 137/75
--- NOTE | 2020-06-07 04:19 | NUR ---
PATIENT APPEARS SLEEPING AT THIS TIME WITH EYES CLOSED. RESPS ARE EVEN AND UNLABORED. IVF PATENT AND INFUSING VIA LAC SITE. SITE REMAINS HEALTHY AT THIS TIME. VOIDING QS YELLOW URINE IN URINAL. CALL LIGHT IN REACH. WILL CONT TO MONITOR.
[2020-06-07 07:12] VITALS: BP 130/73
[2020-06-07 08:05] LABS: IMMATURE GRANULOCYTES 4.1 % (0.0-5.0); MEAN CELL VOLUME 84.1 fL CALC (80.0-100.0); MEAN CORPUSCULAR HGB 27.2 pG CALC (26.0-32.0); MEAN CORPUSCULAR HGB CONC 32.3 g/dL CAL (32.0-36.0); NEUT# 2.29 thou/uL (1.82-7.42); RED BLOOD COUNT 3.46 mill/uL (4.70-6.10); RED CELL DISTRI WIDTH 19.1 % (11.5-15.5)
[2020-06-07 08:19] LABS: HEMATOCRIT 29.1 % (39.0-50.0); HEMOGLOBIN 9.4 g/dl (14.0-18.0)
[2020-06-07 08:27] LABS: ANION GAP 9 (6-22 (CALC)); BUN 13 mg/dL (8-23); BUN/CREATININE RATIO 19 (12-20 (CALC)); CARBON DIOXIDE 25 mmol/l (22-30); CHLORIDE 104 mmol/l (95-108); CREATININE 0.7 mg/dL (0.7-1.3); GFR > 60 ML/MIN (>=60 (CALC)); GFR FOR AFR.AMER. > 60 ML/MIN (>=60 (CALC)); POTASSIUM 4.3 mmol/l (3.5-5.1); SODIUM 133 mmol/l (137-146)
--- NOTE | 2020-06-07 11:58 | NUR ---
pt is stable. pt denies pain or discomfort. POC reviewed with pt. no new concerns. speech writer will continue to monitor
[2020-06-07] MEDS ORDERED: LISINOPRIL20 MG PO (14:14)
[2020-06-07 15:44] VITALS: BP 133/75
--- NOTE | 2020-06-07 16:36 | NUR ---
Discharge instructions given. Patient verbalizes understanding of same. Discharged in stable condition via Wheelchair to Home with family. All belongings sent with pt.
--- NOTE | 2020-06-07 16:38 | NUR ---
PHARMACY CLOSED AT 3PM. UNABLE TO COLLECT PT'S MED AT THIS TIME. PT AGREES TO COME BACK TOMORROW AM TO GET HIS MEDS. OFFICE ADMINISTRATION INSTRUCTOR WILL NOTIFY INCOMING WAGON WINDER
--- NOTE | 2020-06-07 18:10 | NUR ---
POTATO SORTER CALLED AND SPOKE TO PT ABOUT PRESCRIPTION FOR LISINOPRIL. PT DID NOT HAVE PRISCRIPTION WITH HIM ON DISCHARGE. PT AGREES TO EQUAL EMPLOYMENT OPPORTUNITY OFFICER PRESCRIPTION IN THE AM. PT DOES NOT WANT THE PRESCRIPTION FAXED TO PHARMACY. POTATO SORTER WILL NOTIFY INCOMING NURSE AND GRAPHIC ARTIST
== END 2020-06-07 16:35 | disposition home or self-care (01) ==
LOC: ED 02:56 → ED-I 04:35 → ED 04:49 → MS2 04:50
PROVIDERS: Emergency Medicine; Internal Medicine; Nurse Practitioner Family; ADMIT Internal Medicine; ATTEND Internal Medicine
PROC: 30233N1 Transfusion of Nonautologous Red Blood Cells into Peripheral Vein, Percutaneous Approach (ICD-10-PCS; principal; 2020-06-06)
DX: D61.818 Other pancytopenia (principal); C90.00 Multiple myeloma not having achieved remission; I10 Essential (primary) hypertension; E78.5 Hyperlipidemia, unspecified; E11.9 Type 2 diabetes mellitus without complications; Z79.899 Other long term (current) drug therapy; Z86.718 Personal history of other venous thrombosis and embolism; Z20.828 Contact with and (suspected) exposure to other viral communicable diseases
CPT/HCPCS: G0378; P9016

== ENCOUNTER 2020-06-24 15:19 | Observation (INO) | payer MEDICARE, MEDICAID ==
[~2020-06-24] VITALS: Ht 188 cm; Wt 85.0 kg
[~2020-06-24 15:19] MED LIST changes: +ACYCLOVIR400 MG PO; +PERCOCET 5/321 COMBO PO; +TOPROL XL50 MG PO
[2020-06-24 17:48] LABS: HEMATOCRIT 32.3 % (39.0-50.0); HEMOGLOBIN 10.4 g/dl (14.0-18.0); MEAN CELL VOLUME 84.6 fL CALC (80.0-100.0); MEAN CORPUSCULAR HGB 27.2 pG CALC (26.0-32.0); MEAN CORPUSCULAR HGB CONC 32.2 g/dL CAL (32.0-36.0); NEUT# 5.32 thou/uL (1.82-7.42); RED BLOOD COUNT 3.82 mill/uL (4.70-6.10); RED CELL DISTRI WIDTH 19.4 % (11.5-15.5)
[2020-06-24 18:21] LABS: ANION GAP 16 (6-22 (CALC)); BILIRUBIN, TOTAL 0.5 mg/dL (0.0-1.4); BUN 29 mg/dL (8-23); BUN/CREATININE RATIO 34 (12-20 (CALC)); CARBON DIOXIDE 24 mmol/l (22-30); CHLORIDE 102 mmol/l (95-108); CREATININE 0.9 mg/dL (0.7-1.3); GFR > 60 ML/MIN (>=60 (CALC)); GFR FOR AFR.AMER. > 60 ML/MIN (>=60 (CALC)); POTASSIUM 4.6 mmol/l (3.5-5.1); SGOT/AST 37 u/l (19-48); SODIUM 137 mmol/l (137-146); TOTAL PROTEIN 7.4 g/dL (6.3-8.2)
[2020-06-24 18:34] LABS: ALBUMIN 4.2 g/dL (3.2-5.0); ALKALINE PHOSPHATASE 570 u/l (38-126)
[2020-06-24 18:40] LABS: URINE BILIRUBIN - DIPSTICK NEGATIVE (NEGATIVE); URINE BLOOD DIPSTICK TRACE-INTACT (NEGATIVE); URINE COLOR YELLOW; URINE GLUCOSE - DIPSTICK >=1000 mg/dL (NEGATIVE); URINE KETONE NEGATIVE (NEGATIVE); URINE LEUK ESTERASE NEGATIVE (NEGATIVE); URINE NITRITE - DIPSTICK NEGATIVE (Negative); URINE PH 5.5 (4.5-8.0); URINE PROTEIN - DIPSTICK NEGATIVE (NEG-TRACE); URINE SPECIFIC GRAVITY <=1.005; URINE UROBILINOGEN - DIPSTICK 0.2 E.U./dL (0.2)
[2020-06-24 21:45] VITALS: BP 134/71
[2020-06-24 22:00] VITALS: BP 126/74
[2020-06-24 22:15] VITALS: BP 119/66
[2020-06-24 22:30] VITALS: BP 137/78
[2020-06-25] VITALS (10 sets, daily range): BP systolic 117–140; BP diastolic 61–73
[2020-06-25 08:52] LABS: BUN 17 mg/dL (8-23); BUN/CREATININE RATIO 29 (12-20 (CALC)); CARBON DIOXIDE 23 mmol/l (22-30); CREATININE 0.6 mg/dL (0.7-1.3); GFR > 60 ML/MIN (>=60 (CALC)); GFR FOR AFR.AMER. > 60 ML/MIN (>=60 (CALC)); POTASSIUM 3.9 mmol/l (3.5-5.1)
[2020-06-25 08:53] LABS: ANION GAP 10 (6-22 (CALC)); CHLORIDE 118 mmol/l (95-108); SODIUM 147 mmol/l (137-146)
[2020-06-25] MEDS ORDERED: CYCLOBENZAPRINE10 MG PO (10:26)
[2020-06-25] MEDS ORDERED: NORVASC5 M1 PO (10:35)
[2020-06-25] MEDS ORDERED: ELIQUIS5 MG PO (10:35)
[2020-06-25] MEDS ORDERED: LISINOPRIL20 MG PO (10:35)
[2020-06-25] MEDS ORDERED: METFORMIN500 M2 PO (10:36)
[2020-06-25] MEDS ORDERED: METOPROLOL SUCC50 MG PO (10:36)
[2020-06-26] VITALS: BP 116/70
[2020-06-26 02:00] VITALS: BP 123/69
[2020-06-26 04:00] VITALS: BP 112/61
[2020-06-26 06:00] VITALS: BP 124/70
[2020-06-26 08:00] VITALS: BP 120/76
[2020-06-26] MEDS ORDERED: LEVEMIR FL100 UNIT/M SC (08:09)
[2020-06-26 08:49] VITALS: BP 125/86
== END 2020-06-26 11:25 | disposition home health service (06) ==
LOC: ED 15:19 → ED-I 17:20 → ED 19:05 → ICU 19:06
PROVIDERS: Family Medicine; Internal Medicine; ADMIT Internal Medicine; ATTEND Internal Medicine
DX: E11.65 Type 2 diabetes mellitus with hyperglycemia (principal); R94.31 Abnormal electrocardiogram [ECG] [EKG]; I10 Essential (primary) hypertension; C90.00 Multiple myeloma not having achieved remission; E78.5 Hyperlipidemia, unspecified; Z86.711 Personal history of pulmonary embolism; Z79.84 Long term (current) use of oral hypoglycemic drugs; Z87.891 Personal history of nicotine dependence; Z86.718 Personal history of other venous thrombosis and embolism; Z79.899 Other long term (current) drug therapy; Z79.01 Long term (current) use of anticoagulants; Z20.828 Contact with and (suspected) exposure to other viral communicable diseases

== ENCOUNTER 2021-04-05 11:53 | Emergency (ER) | payer MEDICARE, MEDICAID ==
[~2021-04-05 11:53] MED LIST changes: +CYCLOBENZAPRINE10 MG PO; +LEVEMIR FL100 UNIT/M SC; +METOPROLOL SUCC50 MG PO; +NORVASC5 M1 PO
[2021-04-05 13:15] LABS: HEMATOCRIT 32.5 % (39.0-50.0); HEMOGLOBIN 10.6 g/dl (14.0-18.0); IMMATURE GRANULOCYTES 2.7 % (0.0-5.0); MEAN CORPUSCULAR HGB 29.4 pG CALC (26.0-32.0); MEAN CORPUSCULAR HGB CONC 32.6 g/dL CAL (32.0-36.0); NEUT# 2.19 thou/uL (1.82-7.42); RED BLOOD COUNT 3.61 mill/uL (4.70-6.10); RED CELL DISTRI WIDTH 17.6 % (11.5-15.5)
[2021-04-05 14:00] LABS: ACT PARTIAL THROMBO TIME 28.8 SECONDS (20.0-32.5); INTERNATIONAL NORMALIZED RATIO 1.1 RATIO (0.7-1.3)
[2021-04-05 14:11] LABS: ALBUMIN 3.7 g/dL (3.2-5.0); ALKALINE PHOSPHATASE 65 u/l (38-126); ANION GAP 13 (6-22 (CALC)); BILIRUBIN, TOTAL 0.4 mg/dL (0.0-1.4); BUN 13 mg/dL (8-23); BUN/CREATININE RATIO 13 (12-20 (CALC)); CARBON DIOXIDE 22 mmol/l (22-30); CHLORIDE 102 mmol/l (95-108); D-DIMER 0.32 mg/L (0.19-0.60); GFR > 60 ML/MIN (>=60 (CALC)); GFR FOR AFR.AMER. > 60 ML/MIN (>=60 (CALC)); LIPASE 71 u/l (23-300); POTASSIUM 4.1 mmol/l (3.5-5.1); SGOT/AST 40 u/l (19-48); SODIUM 133 mmol/l (137-146); TOTAL PROTEIN 6.6 g/dL (6.3-8.2)
[2021-04-05 14:49] LABS: URINE BILIRUBIN - DIPSTICK NEGATIVE (NEGATIVE); URINE BLOOD DIPSTICK NEGATIVE (NEGATIVE); URINE COLOR YELLOW; URINE GLUCOSE - DIPSTICK >=1000 mg/dL (NEGATIVE); URINE KETONE NEGATIVE (NEGATIVE); URINE LEUK ESTERASE NEGATIVE (NEGATIVE); URINE PH 6.5 (4.5-8.0); URINE PROTEIN - DIPSTICK NEGATIVE (NEG-TRACE); URINE UROBILINOGEN - DIPSTICK 0.2 E.U./dL (0.2)
[2021-04-05 14:51] LABS: URINE NITRITE - DIPSTICK NEGATIVE (Negative)
[2021-04-05] MEDS ORDERED: TESSALON PERLE100 MG PO (15:57)
[2021-04-05] MEDS ORDERED: AMOX/K CLAV875 M1 PO (15:57)
[2021-04-05] MEDS ORDERED: VENTOLIN HFA IN (15:57)
[2021-04-05 16:03] VITALS: BP 150/83
== END 2021-04-05 16:18 | disposition home or self-care (01) ==
LOC: ED 11:53
DX: J40 Bronchitis, not specified as acute or chronic (principal); I10 Essential (primary) hypertension; E11.9 Type 2 diabetes mellitus without complications; E78.5 Hyperlipidemia, unspecified; C90.00 Multiple myeloma not having achieved remission; Z86.718 Personal history of other venous thrombosis and embolism; Z86.711 Personal history of pulmonary embolism; Z79.4 Long term (current) use of insulin; Z20.822 Contact with and (suspected) exposure to COVID-19

== ENCOUNTER 2022-02-16 11:17 | Emergency (ER) | payer MEDICARE, MEDICAID ==
[2022-02-16] VITALS (9 sets, daily range): BP systolic 102–132; BP diastolic 59–72
[~2022-02-16] VITALS: Ht 188 cm; Wt 98.8 kg
[~2022-02-16 11:17] MED LIST changes: +AMOX/K CLAV875 M1 PO; +TESSALON PERLE100 MG PO; +VENTOLIN HFA IN
[2022-02-16] MEDS ORDERED: GABAPENTIN100 MG PO (11:55)
[2022-02-16] MEDS ORDERED: ATORVASTATIN CA20 MG PO (12:01)
[2022-02-16] MEDS ORDERED: TRAMADOL HCL50 MG PO (12:04)
[2022-02-16 12:37] LABS: HEMATOCRIT 30.3 % (39.0-50.0); HEMOGLOBIN 9.7 g/dl (14.0-18.0); IMMATURE GRANULOCYTES 1.5 % (0.0-5.0); MEAN CELL VOLUME 91.3 fL CALC (80.0-100.0); MEAN CORPUSCULAR HGB 29.2 pG CALC (26.0-32.0); NEUT# 1.79 thou/uL (1.82-7.42); RED BLOOD COUNT 3.32 mill/uL (4.70-6.10); RED CELL DISTRI WIDTH 15.8 % (11.5-15.5)
[2022-02-16 12:50] LABS: ALBUMIN 3.5 g/dL (3.2-5.0); ALKALINE PHOSPHATASE 69 u/l (38-126); ANION GAP 8 (6-22 (CALC)); BILIRUBIN, TOTAL 0.8 mg/dL (0.0-1.4); BUN 15 mg/dL (8-23); BUN/CREATININE RATIO 16 (12-20 (CALC)); CARBON DIOXIDE 26 mmol/l (22-30); CHLORIDE 101 mmol/l (95-108); GFR FOR AFR.AMER. > 60 ML/MIN (>=60 (CALC)); GFR OTHER RACES > 60 ML/MIN (>=60 (CALC)); LIPASE 52 u/l (23-300); MAGNESIUM 1.4 mg/dL (1.6-2.3); POTASSIUM 4.1 mmol/l (3.5-5.1); SGOT/AST 43 u/l (19-48); SODIUM 132 mmol/l (137-146); TOTAL PROTEIN 6.2 g/dL (6.3-8.2)
[2022-02-16] MEDS ORDERED: ATIVAN1 M1 PO (16:21)
[2022-02-16] MEDS ORDERED: MAGNESIUM OXID500 M1 PO (16:21)
[2022-02-16] MEDS ORDERED: MEDDOSEPAK PO (16:22)
== END 2022-02-16 16:36 | disposition home or self-care (01) ==
LOC: ED 11:17
PROVIDERS: Internal Medicine
DX: M54.31 Sciatica, right side (principal); E83.42 Hypomagnesemia; I10 Essential (primary) hypertension; E11.9 Type 2 diabetes mellitus without complications; E78.5 Hyperlipidemia, unspecified; C90.00 Multiple myeloma not having achieved remission; Z86.718 Personal history of other venous thrombosis and embolism; Z86.711 Personal history of pulmonary embolism; Z79.84 Long term (current) use of oral hypoglycemic drugs
CPT/HCPCS: J2060; J3475

== ENCOUNTER 2022-08-01 08:27 | Emergency (ER) | payer MEDICARE, MEDICAID ==
[~2022-08-01] VITALS: Ht 188 cm; Wt 99.1 kg
[2022-08-01] VITALS (7 sets, daily range): BP systolic 120–143; BP diastolic 60–104
[~2022-08-01 08:27] MED LIST changes: +ATIVAN1 M1 PO; +ATORVASTATIN CA20 MG PO; +GABAPENTIN100 MG PO; +MAGNESIUM OXID500 M1 PO
[2022-08-01] MEDS ORDERED: REVLIMID20 MG PO (08:40)
[2022-08-01] MEDS ORDERED: DEXAMETHASON0.5 MG PO (08:41)
[2022-08-01 09:44] LABS: URINE BILIRUBIN - DIPSTICK NEGATIVE (NEGATIVE); URINE BLOOD DIPSTICK SMALL (NEGATIVE); URINE COLOR YELLOW; URINE GLUCOSE - DIPSTICK NEGATIVE (NEGATIVE); URINE KETONE NEGATIVE (NEGATIVE); URINE LEUK ESTERASE NEGATIVE (NEGATIVE); URINE NITRITE - DIPSTICK NEGATIVE (Negative); URINE PROTEIN - DIPSTICK NEGATIVE (NEG-TRACE); URINE UROBILINOGEN - DIPSTICK 0.2 E.U./dL (0.2)
[2022-08-01 09:45] LABS: URINE RBC 0-2 RBC/hpf (0-5)
[2022-08-01] MEDS ORDERED: CEPHALEXIN500 M1 PO ×2 (09:49→09:50)
[2022-08-01] MEDS ORDERED: HYDROCO/APAP1 TA9 PO (09:50)
== END 2022-08-01 10:19 | disposition home or self-care (01) ==
LOC: ED 08:27
PROVIDERS: Family Medicine
DX: S33.5XXA Sprain of ligaments of lumbar spine, initial encounter (principal); M25.552 Pain in left hip; R31.9 Hematuria, unspecified; I10 Essential (primary) hypertension; E78.5 Hyperlipidemia, unspecified; E11.9 Type 2 diabetes mellitus without complications; Z86.711 Personal history of pulmonary embolism; Z86.718 Personal history of other venous thrombosis and embolism; Z79.84 Long term (current) use of oral hypoglycemic drugs; X58.XXXA Exposure to other specified factors, initial encounter; Z85.820 Personal history of malignant melanoma of skin

== ENCOUNTER 2024-02-17 13:35 | Emergency (ER) | payer MEDICARE ==
[~2024-02-17] VITALS: Ht 188 cm; Wt 100.0 kg
[~2024-02-17 13:35] MED LIST changes: +ACETAMINOPHEN325 MG PO; +CEPHALEXIN500 M1 PO; +CYANOCOBAL1000 MCG/M IM; +DEXAMETHASON0.5 MG PO; +HYDROCO/APAP1 TA9 PO; +LASIX 20 MG TAB20 MG PO; +LEVEMIR100 UNIT; +OMEPRAZOLE DR40 MG; +POMALYST3 MG PO; +REVLIMID20 MG PO; +ZITHROMAX500 MG PO
[2024-02-17 14:04] LABS: BASO% 0.7 % (0-3); EOS% 0.2 % (0-8); HEMATOCRIT 32.4 % (39.0-50.0); IMMATURE GRANULOCYTES 3.5 % (0.0-5.0); LYMPH% 23.9 % (15-41); MEAN CORPUSCULAR HGB 29.9 pG CALC (26.0-32.0); MEAN CORPUSCULAR HGB CONC 30.9 g/dL CAL (32.0-36.0); NEUT# 2.32 thou/uL (1.82-7.42); NEUT% 50.7 % (42-76); RED BLOOD COUNT 3.34 mill/uL (4.70-6.10); RED CELL DISTRI WIDTH 16.5 % (11.5-15.5)
[2024-02-17 14:16] LABS: ALBUMIN 3.5 g/dL (3.2-5.0); ALKALINE PHOSPHATASE 79 u/l (38-126); ANION GAP 7 (6-22 (CALC)); BUN 17 mg/dL (8-23); BUN/CREATININE RATIO 24 (12-20 (CALC)); CARBON DIOXIDE 20 mmol/l (22-30); CHLORIDE 108 mmol/l (95-108); CREATININE 0.7 mg/dL (0.7-1.3); ESTIMATED GFR 97 ML/MIN (>=90 (CALC)); POTASSIUM 3.9 mmol/l (3.5-5.1); SGOT/AST 42 u/l (19-48); SODIUM 131 mmol/l (137-146); TOTAL PROTEIN 6.5 g/dL (6.3-8.2)
[2024-02-17 14:23] LABS: BILIRUBIN, TOTAL 1.1 mg/dL (0.2-1.3)
[2024-02-17] MEDS ORDERED: SODIUM CHLORIDE 0.9% 500 ML IV ONE (16:00)
[2024-02-17 16:59] LABS: URINE BILIRUBIN - DIPSTICK Negative (NEGATIVE); URINE BLOOD DIPSTICK Negative (NEGATIVE); URINE GLUCOSE - DIPSTICK >=1000 mg/dL (NEGATIVE); URINE KETONE Trace mg/dL (NEGATIVE); URINE LEUK ESTERASE Negative (NEGATIVE); URINE NITRITE - DIPSTICK Negative (Negative); URINE PROTEIN - DIPSTICK Negative (NEG-TRACE); URINE SPECIFIC GRAVITY <=1.005; URINE UROBILINOGEN - DIPSTICK 0.2 E.U./dL (0.2)
[2024-02-17 17:00] LABS: URINE COLOR Yellow
[2024-02-17 17:43] VITALS: BP 107/66
== END 2024-02-17 17:50 | disposition home or self-care (01) ==
LOC: ED 13:35
PROVIDERS: Family Medicine; Nurse Practitioner
DX: R53.1 Weakness (principal); I10 Essential (primary) hypertension; E78.5 Hyperlipidemia, unspecified; E11.9 Type 2 diabetes mellitus without complications; Z91.81 History of falling; Z79.4 Long term (current) use of insulin; Z86.718 Personal history of other venous thrombosis and embolism; Z86.711 Personal history of pulmonary embolism; Z79.84 Long term (current) use of oral hypoglycemic drugs; Z20.822 Contact with and (suspected) exposure to COVID-19

== ENCOUNTER 2024-08-07 10:24 | Observation (INO) | payer MEDICARE ==
[2024-08-07] VITALS (21 sets, daily range): BP systolic 116–149; BP diastolic 71–99
[~2024-08-07] VITALS: Ht 188 cm; Wt 96.0 kg
[~2024-08-07 10:24] MED LIST changes: +TRAMADOL HYDROC50 M1 PO
[2024-08-07] MEDS ORDERED: ASPIRIN 81 MG/TAB PO ONE (10:30)
[2024-08-07 10:44] LABS: BASO% 0.2 % (0-3); EOS% 2.8 % (0-8); HEMOGLOBIN 11.9 g/dl (14.0-18.0); IMMATURE GRANULOCYTES 0.4 % (0.0-5.0); LYMPH% 39.1 % (15-41); MEAN CELL VOLUME 81.3 fL CALC (80.0-100.0); MEAN CORPUSCULAR HGB 24.8 pG CALC (26.0-32.0); MEAN CORPUSCULAR HGB CONC 30.5 g/dL CAL (32.0-36.0); MONO% 15.9 % (2-13); NEUT# 2.06 thou/uL (1.82-7.42); NEUT% 41.6 % (42-76); RED BLOOD COUNT 4.8 mill/uL (4.70-6.10); RED CELL DISTRI WIDTH 19.7 % (11.5-15.5)
[2024-08-07 11:09] LABS: ALBUMIN 4.6 g/dL (3.2-5.0); ALKALINE PHOSPHATASE 79 u/l (38-126); ANION GAP 15 (6-22 (CALC)); BILIRUBIN, TOTAL 0.7 mg/dL (0.2-1.3); CARBON DIOXIDE 28 mmol/l (22-30); CHLORIDE 103 mmol/l (95-108); POTASSIUM 4.2 mmol/l (3.5-5.1); SGOT/AST 62 u/l (19-48); SODIUM 141 mmol/l (137-146); TOTAL PROTEIN 7.8 g/dL (6.3-8.2)
[2024-08-07 11:13] LABS: BUN 29 mg/dL (8-23); BUN/CREATININE RATIO 27 (12-20 (CALC)); CREATININE 1.1 mg/dL (0.7-1.3); ESTIMATED GFR 70 ML/MIN (>=90 (CALC))
[2024-08-07] MEDS ORDERED: MAGNESIUM HYDROXIDE 30 ML UDC PO PRN (13:45)
[2024-08-07] MEDS ORDERED: ACETAMINOPHEN 325 MG/TAB PO PRN (13:45)
[2024-08-07] MEDS ORDERED: INSULIN LISPRO 100 UNITS/ML ML SC SCH (17:00)
[2024-08-07] MEDS ORDERED: APIXABAN BASE 5 MG TAB PO SCH (21:00)
[2024-08-07] MEDS ORDERED: ATORVASTATIN CALCIUM 40 MG/TAB PO SCH (21:00)
[2024-08-08 00:09] VITALS: BP 107/70
[2024-08-08 00:32] VITALS: BP 107/70
[2024-08-08 04:25] VITALS: BP 106/60
[2024-08-08 04:34] VITALS: BP 106/60
[2024-08-08 05:35] LABS: BASO% 0.3 % (0-3); EOS% 2.8 % (0-8); HEMATOCRIT 35.6 % (39.0-50.0); HEMOGLOBIN 11.2 g/dl (14.0-18.0); IMMATURE GRANULOCYTES 0.3 % (0.0-5.0); LYMPH% 36.3 % (15-41); MEAN CELL VOLUME 79.6 fL CALC (80.0-100.0); MEAN CORPUSCULAR HGB 25.1 pG CALC (26.0-32.0); MEAN CORPUSCULAR HGB CONC 31.5 g/dL CAL (32.0-36.0); MONO% 15.5 % (2-13); NEUT# 1.62 thou/uL (1.82-7.42); NEUT% 44.8 % (42-76); RED BLOOD COUNT 4.47 mill/uL (4.70-6.10); RED CELL DISTRI WIDTH 19.2 % (11.5-15.5)
[2024-08-08 05:50] LABS: BILIRUBIN, TOTAL 0.6 mg/dL (0.2-1.3); CREATININE 0.9 mg/dL (0.7-1.3); MAGNESIUM 2.3 mg/dL (1.6-2.3); POTASSIUM 4.2 mmol/l (3.5-5.1)
[2024-08-08 05:53] LABS: ALBUMIN 3.6 g/dL (3.2-5.0); TOTAL PROTEIN 6.2 g/dL (6.3-8.2)
[2024-08-08] MEDS ORDERED: GABAPENTIN600 MG PO (09:39)
[2024-08-08 10:14] VITALS: BP 123/71
[2024-08-08 10:54] VITALS: BP 114/67
== END 2024-08-08 12:00 | disposition home or self-care (01) ==
LOC: ED 10:24 → ED-I 13:23 → ED 13:40 → ED-I 13:41 → MS2 16:30
PROVIDERS: Family Medicine; Nurse Practitioner Family; ADMIT Internal Medicine; ATTEND Internal Medicine
DX: R07.89 Other chest pain (principal); I10 Essential (primary) hypertension; E11.40 Type 2 diabetes mellitus with diabetic neuropathy, unspecified; E78.5 Hyperlipidemia, unspecified; Z86.718 Personal history of other venous thrombosis and embolism; Z86.711 Personal history of pulmonary embolism; Z79.84 Long term (current) use of oral hypoglycemic drugs; Z79.4 Long term (current) use of insulin; Z87.891 Personal history of nicotine dependence; Z79.01 Long term (current) use of anticoagulants